=== PATIENT | female | born 1990 | race Caucasian/White ===

== ENCOUNTER → 2020-12-16 19:22 | Observation (INO) ==
[2020-12-16 16:11] LABS: Bacteria,Urine Few per hpf (None-Few); Bilirubin,Urine Negative (Negative); Blood,Urine Moderate (Negative); Clarity,Urine Turbid (Clear); Color,Urine Light-Yellow (Yellow); Glucose,Urine (UA) Normal (Normal); Ketones,Urine 10 mg/dL (Negative); Leukocyte Esterase,Urine Trace (Negative); Mucus,Urine Few per lpf (None-Few); Nitrite,Urine Negative (Negative); PH,Urine 6.5 pH Units (5.0-8.0); Protein,Urine Trace mg/dL (Neg-Trace); RBC,Urine 50-100 per hpf (0-3); Specific Gravity,Urine 1.017 (1.010-1.025); Squamous Epithelial Cell,Urine Few per hpf (None-Few); Urobilinogen,Urine Normal (Normal)
[2020-12-16 16:17] LABS: Basophils # 0.1 K/mcL (0.0-0.2); Basophils % 0.7 %; Eosinophils # 0.2 K/mcL (0.0-0.6); Eosinophils % 1.6 %; Hematocrit 29.3 % (35.3-44.9); Lymphocytes % 18.6 %; Mean Corpuscular HGB Conc 34.1 g/dL (31.6-35.5); Mean Corpuscular Hemoglobin 29.9 pg (28.0-33.3); Mean Corpuscular Volume 87.5 fL (83.0-100.0); Mean Platelet Volume 10.2 fL (9.4-12.4); Monocytes # 0.8 K/mcL (0.0-1.3); Monocytes % 7.3 %; Neutrophils # 7.4 K/mcL (1.6-8.9); Platelet Count 206 K/mcL (140-400); Red Blood Count 3.35 M/mcL (3.82-4.97); Red Cell Distribution Width 13.2 % (11.5-14.5); Segmented Neutrophils % 70.8 %; White Blood Count 10.5 K/mcL (4.3-11.1)
[~2020-12-16 19:22] MED LIST: *HR* Nalbuphine 10 MG/ML AMPUL IV PRN; *HR* OxyCODONE/APAP 5/325 TABLET PO ONE; Acetaminophen 325 MG TABLET PO ONE; Ringers Solution, Lactated 1,000 ML IVC ONE; Ringers Solution, Lactated 1,000 ML IVC SCH; Ringers Solution, Lactated 1,000 ML ONE
== END | disposition home or self-care (01) ==
LOC: 1NENULAB
PROVIDERS: ADMIT Advanced Practice Midwife; ATTEND Advanced Practice Midwife

== ENCOUNTER 2021-02-05 04:01 | Inpatient (IN) ==
[2021-02-05] MEDS ORDERED: Metoclopramide 10 MG/2 ML VIAL IVP PRN (04:03)
[2021-02-05] MEDS ORDERED: Famotidine 20 MG/2 ML VIAL IVP PRN (04:03)
[2021-02-05] MEDS ORDERED: *HR* Nalbuphine 10 MG/ML AMPUL IV PRN (04:03)
[2021-02-05] MEDS ORDERED: Lidocaine 1% 20 ML MDV INFILT PRN (04:03)
[2021-02-05] MEDS ORDERED: Naloxone 0.4 MG/ML INJ IVP PRN (04:03)
[2021-02-05] MEDS ORDERED: Ondansetron 4 MG/2 ML VIAL IVP PRN (04:03)
[2021-02-05] MEDS ORDERED: miSOPROStoL 25 MCG TABLET PO PRN (04:06)
[2021-02-05 04:58] LABS: Basophils # 0.1 K/mcL (0.0-0.2); Basophils % 0.6 %; Eosinophils # 0.1 K/mcL (0.0-0.6); Eosinophils % 1.8 %; Hematocrit 30.7 % (35.3-44.9); Hemoglobin 10.5 g/dL (11.5-15.4); Immature Granulocytes % 0.9 % (0-4); Lymphocytes # 1.4 K/mcL (0.6-4.6); Lymphocytes % 17.7 %; Mean Corpuscular HGB Conc 34.2 g/dL (31.6-35.5); Mean Corpuscular Hemoglobin 29.7 pg (28.0-33.3); Mean Corpuscular Volume 86.7 fL (83.0-100.0); Mean Platelet Volume 10.3 fL (9.4-12.4); Monocytes # 0.7 K/mcL (0.0-1.3); Neutrophils # 5.4 K/mcL (1.6-8.9); Platelet Count 213 K/mcL (140-400); Red Blood Count 3.54 M/mcL (3.82-4.97); Red Cell Distribution Width 14.6 % (11.5-14.5); White Blood Count 7.8 K/mcL (4.3-11.1)
[2021-02-05 05:01] LABS: Amphetamine Screen,Urine Negative ng/mL (Cutoff=1000); Barbiturate Screen,Urine Negative ng/mL (Cutoff=200); Benzodiazepines Screen,Urine Negative ng/mL (Cutoff=200); Cannabinoid Screen,Urine Negative ng/mL (Cutoff = 50); Cocaine Screen,Urine Negative ng/mL (Cutoff= 300); Opiate Screen,Urine Negative ng/mL (Cutoff=300); Phencyclidine Screen,Urine Negative ng/mL (Cutoff=25)
[2021-02-05 05:32] LABS: Influenza A PCR Negative (Negative); Influenza B PCR Negative (Negative); Resp. Syncytial Virus PCR Negative (Negative)
[2021-02-05 05:33] LABS: SARS-CoV-2 by PCR (In House) Negative (Negative)
[2021-02-05] MEDS ORDERED: Epidural Premix (fent/bupiv) 110 ML EP SCH (05:45)
[2021-02-05] MEDS ORDERED: EPHEDrine 50 MG/ML VIAL IVP PRN (05:45)
[2021-02-05] MEDS: Ringers Solution, Lactated 1,000 ML IVC SCH ×2 (07:33→17:53)
[2021-02-05] MEDS ORDERED: Oxytocin 20 units/ LR 1000 mL 20 UNIT/1,000 ML BAG IVC SCH ×2 (09:00→22:42)
[2021-02-05] MEDS ORDERED: Ropivacaine/PF 0.2% 20 ML VIAL ONE (13:07)
[2021-02-05] MEDS ORDERED: valACYclovir 500 MG TABLET PO SCH (22:42)
[2021-02-05] MEDS ORDERED: Benzocaine/Menthol 56 GM AEROSOL SPRAY TP PRN (22:42)
[2021-02-05] MEDS ORDERED: Lanolin 7 G OINT...G. TP PRN (22:42)
[2021-02-05] MEDS ORDERED: Ondansetron ODT 4 MG TAB.RAPDIS SL PRN (22:42)
[2021-02-06] MEDS: Ibuprofen 600 MG TABLET PO SCH ×2 (01:33→14:06)
[2021-02-06] MEDS: Acetaminophen 325 MG TABLET PO SCH ×3 (01:34→17:42)
[2021-02-06] MEDS ORDERED: Lidocaine/EPI 1:100k 1% 20 ML VIAL INFILT ONE ×2 (07:55→17:10)
[2021-02-06] MEDS ORDERED: Etonogestrel 68 MG IMPLANT IL ONE ×2 (07:55→17:10)
[2021-02-06] MEDS ORDERED: Prenatal Vit/FA 1 EACH TABLET PO SCH (09:00)
[2021-02-06 16:09] VITALS: BP 120/78; PULSE 68; TEMP 97.9
== END 2021-02-06 18:22 | disposition home or self-care (01) | DRG 560 ==
LOC: 1NENULAB 04:01 → 1NENUOBS 22:11
PROVIDERS: ADMIT Registered Nurse; ATTEND Registered Nurse